=== PATIENT | male | born 1960 | race Caucasian/White ===

== ENCOUNTER 2019-07-19 20:40 | Inpatient (IN) | payer MEDICAID, OTHER ==
[~2019-07-19] VITALS: Ht 172.7 cm; Wt 75.7 kg
[~2019-07-19 20:40] MED LIST: DIVA500T52 PO; FLUO-191 PO; OLAN20TA5 PO; OLAN5TAB40 PO; PANT40TA25 PO
[2019-07-19 21:19] LABS: GLUCOSE,POINT OF CARE 76 MG/DL (70-110)
[2019-07-19 21:39] LABS: AMPHET/METH SCREEN,URINE NEGATIVE (NEGATIVE); BARBITURATE SCREEN, URINE NEGATIVE (NEGATIVE); BENZODIAZEPINES SCREEN,URINE NEGATIVE (NEGATIVE); CANNABINOID SCREEN,URINE NEGATIVE (NEGATIVE); COCAINE SCREEN,URINE NEGATIVE (NEGATIVE); METHADONE SCREEN, URINE NEGATIVE (NEGATIVE); OPIATE SCREEN,URINE NEGATIVE (NEGATIVE); PHENCYCLIDINE SCREEN,URINE NEGATIVE (NEGATIVE)
[2019-07-19 21:55] LABS: BASOPHILS % (AUTO) 0.5 % (0.0-2.0); EOSINOPHILS % (AUTO) 3.3 % (1.0-6.0); HEMATOCRIT 43.4 % (41-53); HEMOGLOBIN 14.3 g/dL (13.5-17.5); LYMPHOCYTES # (AUTO) 4.7 K/uL (1.0-4.8); LYMPHOCYTES % (AUTO) 47.6 % (22.0-44.0); MEAN CORPUSCULAR HEMOGLOBIN 30.9 pg (26.0-34.0); MEAN CORPUSCULAR HGB CONC 33.1 G/dL (31.0-37.0); MEAN CORPUSCULAR VOLUME 94 fL (80-100); MONOCYTES # (AUTO) 0.7 K/uL (0.1-1.0); NEUTROPHILS # (AUTO) 4.1 K/uL (1.8-7.7); NEUTROPHILS % (AUTO) 41.6 % (40.0-70.0); PLATELET COUNT (AUTO) 189 K/uL (150-450); RED BLOOD CELL COUNT(AUTO) 4.64 MIL/uL (4.50-5.90); RED CELL DISTRIBUTION WIDTH 19.7 % (11.5-14.5)
[2019-07-19 22:03] LABS: ANION GAP 7 mmol/L (8-16); CALCIUM, TOTAL 8.5 mg/dL (8.8-10.5); CARBON DIOXIDE 26 mmol/L (22-29); CHLORIDE 98 mmol/L (98-107); CREATININE 0.71 mg/dL (0.60-1.30); GLOMERULAR FILTR. RATE CALC > 60 mL/min (>60); GLUCOSE,RANDOM 97 mg/dL (70-110); POTASSIUM 3.3 mmol/L (3.5-5.1); SODIUM SERUM 131 mmol/L (136-145); UREA NITROGEN, BLOOD 5 mg/dL (7-18)
[2019-07-19 22:09] LABS: ALANINE AMINOTRANSFERASE 22 U/L (12-78); ALBUMIN 3.3 g/dL (3.4-5.0); ALKALINE PHOSPHATASE 62 U/L (46-116); ASPARTATE AMINOTRANSFERASE 15 U/L (15-37); BILIRUBIN,TOTAL 0.1 mg/dL (0.1-1.0); VALPROIC ACID 46 mcg/mL (50-100)
[2019-07-19] MEDS ORDERED: ZOLPIDEM TARTRATE 10 MG TABLET PO PRN (22:15)
[2019-07-19] MEDS ORDERED: LORazepam 2 MG TABLET PO PRN (22:15)
[2019-07-19] MEDS ORDERED: HALOPERIDOL 5 MG TABLET PO PRN (22:15)
[2019-07-20] MEDS ORDERED: PNEUMOCOCCAL VACCINE POLYVALENT 0.5 ML VIAL [PPSV23] IM ONE (02:00)
[2019-07-20 02:05] VITALS: BP 151/94
[2019-07-20] MEDS: PANTOPRAZOLE SODIUM 40 MG DR TABLET PO SCH (09:34)
[2019-07-20] MEDS: AmLODIPine BESYLATE 5 MG TABLET PO SCH (09:35)
[2019-07-20] MEDS: OLANZapine 7.5 MG TABLET PO SCH ×2 (09:35→16:35)
[2019-07-20] MEDS: FLUoxetine HCL 20 MG CAPSULE PO SCH (09:35)
[2019-07-20 10:55] VITALS: BP 143/106
[2019-07-20] MEDS ORDERED: POTASSIUM CHLORIDE 20 MEQ ER TABLET PO ONE (11:30)
[2019-07-20] MEDS ORDERED: LORazepam 1 MG TABLET PO PRN (12:35)
[2019-07-20] MEDS ORDERED: IBUPROFEN 400 MG TABLET PO PRN (14:00)
[2019-07-20] MEDS ORDERED: ONDANSETRON HCL 4 MG TABLET PO PRN (14:00)
[2019-07-20] MEDS ORDERED: CloNIDine HCL 0.1 MG TABLET PO PRN (14:00)
[2019-07-20] MEDS ORDERED: GuaiFENesin/D-METHORPHAN [SUGAR-FREE] 200-20MG/10 ML SYRUP UDCUP PO PRN (14:00)
[2019-07-20] MEDS ORDERED: NICOTINE 14 MG/24 HOUR PATCH TD PRN (14:00)
[2019-07-20] MEDS ORDERED: MAGNESIUM HYDROXIDE SUSPENSION 30 ML UDCUP PO PRN (14:00)
[2019-07-20] MEDS ORDERED: LOPERAMIDE HCL 2 MG CAPSULE PO PRN (14:00)
[2019-07-20] MEDS ORDERED: ACETAMINOPHEN 325 MG TABLET PO PRN (14:00)
[2019-07-20] MEDS ORDERED: ALBUTEROL SULFATE HFA 90 MCG/PUFF 8 GM INHALER IH PRN (14:00)
[2019-07-20] MEDS ORDERED: DOCUSATE SODIUM 100 MG CAPSULE PO PRN (14:00)
[2019-07-20] MEDS ORDERED: PETROLATUM,WHITE 28 GM JELLY TP PRN (14:00)
[2019-07-20] MEDS ORDERED: MAG HYDROX/AL HYDROX/SIMETH ES 30 ML SUSPENSION UDCUP PO PRN (14:00)
[2019-07-20] MEDS ORDERED: OLAN20TA5 PO (14:06)
[2019-07-20 16:00] VITALS: BP 146/94
[2019-07-20] MEDS: DIVALPROEX SODIUM 500 MG ER TABLET PO SCH (20:24)
[2019-07-21 07:48] LABS: ALANINE AMINOTRANSFERASE 22 U/L (12-78); ALBUMIN 3.4 g/dL (3.4-5.0); ALKALINE PHOSPHATASE 66 U/L (46-116); ANION GAP 9 mmol/L (8-16); ASPARTATE AMINOTRANSFERASE 15 U/L (15-37); BILIRUBIN,TOTAL 0.2 mg/dL (0.1-1.0); CALCIUM, TOTAL 9.4 mg/dL (8.8-10.5); CARBON DIOXIDE 27 mmol/L (22-29); CHLORIDE 103 mmol/L (98-107); CREATININE 0.64 mg/dL (0.60-1.30); GLOMERULAR FILTR. RATE CALC > 60 mL/min (>60); GLUCOSE,RANDOM 110 mg/dL (70-110); POTASSIUM 4.5 mmol/L (3.5-5.1); SODIUM SERUM 139 mmol/L (136-145); TOTAL PROTEIN, SERUM 7.1 g/dL (6.4-8.2); UREA NITROGEN, BLOOD 6 mg/dL (7-18)
[2019-07-21 08:00] VITALS: BP 153/97
[2019-07-21] MEDS: FLUoxetine HCL 20 MG CAPSULE PO SCH (08:53)
[2019-07-21] MEDS: OLANZapine 7.5 MG TABLET PO SCH ×2 (08:53→16:16)
[2019-07-21] MEDS: AmLODIPine BESYLATE 5 MG TABLET PO SCH (08:53)
[2019-07-21] MEDS: PANTOPRAZOLE SODIUM 40 MG DR TABLET PO SCH (08:53)
[2019-07-21 17:04] VITALS: BP 153/91
[2019-07-21] MEDS: DIVALPROEX SODIUM 500 MG ER TABLET PO SCH (20:32)
[2019-07-22 03:25] VITALS: BP 121/88
[2019-07-22 08:36] VITALS: BP 126/91
[2019-07-22] MEDS: OLANZapine 7.5 MG TABLET PO SCH ×2 (09:34→16:09)
[2019-07-22] MEDS: AmLODIPine BESYLATE 5 MG TABLET PO SCH (09:34)
[2019-07-22] MEDS: PANTOPRAZOLE SODIUM 40 MG DR TABLET PO SCH (09:34)
[2019-07-22] MEDS: FLUoxetine HCL 20 MG CAPSULE PO SCH (09:34)
[2019-07-22 17:04] VITALS: BP 122/85
[2019-07-22] MEDS: DIVALPROEX SODIUM 500 MG ER TABLET PO SCH (20:14)
[2019-07-23 05:11] VITALS: BP 123/93
[2019-07-23] MEDS: FLUoxetine HCL 20 MG CAPSULE PO SCH (08:14)
[2019-07-23] MEDS: OLANZapine 7.5 MG TABLET PO SCH ×2 (08:14→17:27)
[2019-07-23] MEDS: PANTOPRAZOLE SODIUM 40 MG DR TABLET PO SCH (08:14)
[2019-07-23] MEDS: AmLODIPine BESYLATE 5 MG TABLET PO SCH (08:14)
[2019-07-23 09:41] VITALS: BP 128/98
[2019-07-23 17:07] VITALS: BP 137/90
[2019-07-23] MEDS: DIVALPROEX SODIUM 500 MG ER TABLET PO SCH (20:36)
[2019-07-24 08:32] VITALS: BP 140/98
[2019-07-24] MEDS: AmLODIPine BESYLATE 5 MG TABLET PO SCH (08:53)
[2019-07-24] MEDS: FLUoxetine HCL 20 MG CAPSULE PO SCH (08:53)
[2019-07-24] MEDS: OLANZapine 7.5 MG TABLET PO SCH ×2 (08:53→16:05)
[2019-07-24] MEDS: PANTOPRAZOLE SODIUM 40 MG DR TABLET PO SCH (08:54)
[2019-07-24] MEDS ORDERED: AMLO5TAB9 PO (15:15)
== END 2019-07-24 17:00 | disposition home or self-care (01) | DRG 885 ==
LOC: EMS 20:41 → 3EI 22:34
PROVIDERS: ADMIT Psychiatry & Neurology Psychiatry; ATTEND Psychiatry & Neurology Child & Adolescent Psychiatry
DX: F25.9 Schizoaffective disorder, unspecified (principal); E87.1 Hypo-osmolality and hyponatremia; R45.851 Suicidal ideations; E87.6 Hypokalemia; F17.200 Nicotine dependence, unspecified, uncomplicated; F31.9 Bipolar disorder, unspecified; I10 Essential (primary) hypertension; K21.9 Gastro-esophageal reflux disease without esophagitis; M19.90 Unspecified osteoarthritis, unspecified site; F41.9 Anxiety disorder, unspecified; E78.00 Pure hypercholesterolemia, unspecified; Z91.5 Personal history of self-harm; Z88.8 Allergy status to other drugs, medicaments and biological substances; Z79.899 Other long term (current) drug therapy
CPT/HCPCS: 90732; G0480

== ENCOUNTER 2020-04-28 10:27 | Emergency (ER) | payer MEDICAID, OTHER ==
[~2020-04-28] VITALS: Ht 170.2 cm; Wt 70.0 kg
[~2020-04-28 10:27] MED LIST changes: +AMLO-257 PO; +DIVA-80 PO; -DIVA500T52 PO; -OLAN20TA5 PO; +PANT-31 PO; -PANT40TA25 PO
[2020-04-28 11:08] LABS: COVID AG,FIA SOURCE NASOPHARYNGEAL
[2020-04-28 11:40] LABS: AMPHET/METH SCREEN,URINE NEGATIVE (NEGATIVE); BARBITURATE SCREEN, URINE NEGATIVE (NEGATIVE); BENZODIAZEPINES SCREEN,URINE NEGATIVE (NEGATIVE); CANNABINOID SCREEN,URINE NEGATIVE (NEGATIVE); COCAINE SCREEN,URINE NEGATIVE (NEGATIVE); METHADONE SCREEN, URINE NEGATIVE (NEGATIVE); OPIATE SCREEN,URINE NEGATIVE (NEGATIVE)
[2020-04-28 11:42] LABS: PHENCYCLIDINE SCREEN,URINE NEGATIVE (NEGATIVE)
[2020-04-28 12:21] VITALS: BP 130/89
== END 2020-04-28 12:52 | disposition home or self-care (01) ==
LOC: EMS 10:29
DX: F20.9 Schizophrenia, unspecified (principal); R45.851 Suicidal ideations; F10.239 Alcohol dependence with withdrawal, unspecified; F41.9 Anxiety disorder, unspecified; K21.9 Gastro-esophageal reflux disease without esophagitis; I10 Essential (primary) hypertension; F17.210 Nicotine dependence, cigarettes, uncomplicated; Z79.899 Other long term (current) drug therapy; Z88.8 Allergy status to other drugs, medicaments and biological substances; Z20.822 Contact with and (suspected) exposure to COVID-19
CPT/HCPCS: 87426

== ENCOUNTER 2021-04-28 11:04 | Emergency (ER) | payer OTHER ==
[~2021-04-28] VITALS: Ht 175.3 cm; Wt 86.4 kg
[~2021-04-28 11:04] MED LIST changes: -OLAN5TAB40 PO; +OLAN5TAB94 PO
[2021-04-28 13:08] VITALS: BP 137/83
== END 2021-04-28 13:11 | disposition home or self-care (01) ==
LOC: EMS 11:09
DX: F32.9 Major depressive disorder, single episode, unspecified (principal); F41.9 Anxiety disorder, unspecified; I10 Essential (primary) hypertension; K21.9 Gastro-esophageal reflux disease without esophagitis; F17.210 Nicotine dependence, cigarettes, uncomplicated; Z88.8 Allergy status to other drugs, medicaments and biological substances; Z79.899 Other long term (current) drug therapy
CPT/HCPCS: 99284; Z7502

== ENCOUNTER 2021-08-18 15:51 | Emergency (ER) | payer OTHER ==
[~2021-08-18] VITALS: Ht 172.7 cm; Wt 89.5 kg
[~2021-08-18 15:51] MED LIST changes: +FLUO-177 PO; -FLUO-191 PO
[2021-08-18] MEDS ORDERED: ALBU8HFA IH (16:06)
[2021-08-18] MEDS ORDERED: ACET125T2 PO (16:06)
[2021-08-18] MEDS ORDERED: ADJU0.5V IM (16:06)
[2021-08-18] MEDS ORDERED: FAMO20 PO (16:06)
[2021-08-18] MEDS ORDERED: PALI6TAB15 PO (16:06)
[2021-08-18] MEDS ORDERED: FERR325T27 PO (16:06)
[2021-08-18] MEDS ORDERED: METF-1211 PO (16:06)
[2021-08-18] MEDS ORDERED: BECL10.6 IH (16:06)
[2021-08-18] MEDS ORDERED: ROSU20TA73 PO (16:06)
[2021-08-18] MEDS ORDERED: XALA2.5OS OU (16:06)
[2021-08-18] MEDS ORDERED: ASPI-1450 PO (16:06)
[2021-08-18] MEDS ORDERED: ASCO500C6 PO (16:06)
[2021-08-18] MEDS ORDERED: OMEP20 PO (16:06)
[2021-08-18] MEDS ORDERED: BENA10TA77 PO (16:06)
[2021-08-18 16:31] LABS: GLUCOMETER DEV NAME(LOC) ERT.5; GLUCOSE,POINT OF CARE 183 MG/DL (70-110)
[2021-08-18] MEDS ORDERED: NAPR-1025 PO (16:33)
[2021-08-18] MEDS ORDERED: METH-659 PO (16:33)
[2021-08-18] MEDS ORDERED: METHOCARBAMOL 500 MG TABLET PO ONE (16:45)
[2021-08-18] MEDS ORDERED: KETOROLAC TROMETHAMINE 10 MG TABLET PO ONE (16:45)
[2021-08-18 16:54] VITALS: BP 125/91
== END 2021-08-18 16:59 | disposition home or self-care (01) ==
LOC: EMS 15:54
DX: S76.912A Strain of unspecified muscles, fascia and tendons at thigh level, left thigh, initial encounter (principal); F41.9 Anxiety disorder, unspecified; F31.9 Bipolar disorder, unspecified; E11.9 Type 2 diabetes mellitus without complications; K21.9 Gastro-esophageal reflux disease without esophagitis; I10 Essential (primary) hypertension; F17.210 Nicotine dependence, cigarettes, uncomplicated; Z79.84 Long term (current) use of oral hypoglycemic drugs; Z79.82 Long term (current) use of aspirin; Z88.8 Allergy status to other drugs, medicaments and biological substances; X58.XXXA Exposure to other specified factors, initial encounter; Y93.89 Activity, other specified; Y92.89 Other specified places as the place of occurrence of the external cause; Y99.8 Other external cause status
CPT/HCPCS: 82962; 99283

== ENCOUNTER 2022-08-07 22:56 | Emergency (ER) | payer OTHER ==
[~2022-08-07 22:56] MED LIST changes: +ACET125T2 PO; +ADJU0.5V IM; +ALBU18HF12 IH; +ASCO500C6 PO; +ASPI-1450 PO; +BECL10.6 IH; +BENA10TA77 PO; -DIVA-80 PO; +DIVA500T53 PO; +FAMO20 PO; +FERR325T27 PO; +METF-1211 PO; +METH-659 PO; +NAPR-1025 PO; +OMEP20 PO; +PALI6TAB15 PO; +ROSU20TA73 PO; +XALA2.5OS OU
== END 2022-08-08 00:28 | disposition left against medical advice (07) ==
LOC: EMS 22:58
DX: Z53.21 Procedure and treatment not carried out due to patient leaving prior to being seen by health care provider (principal)

== ENCOUNTER 2023-05-27 17:21 | Emergency (ER) | payer OTHER ==
[~2023-05-27 17:21] MED LIST changes: +BENA-16 PO; -BENA10TA77 PO
[2023-05-27 18:19] VITALS: TEMP 97.8
[2023-05-27 18:21] LABS: ANION GAP 14 mmol/L (8-16); CALCIUM, TOTAL 9.6 mg/dL (8.8-10.5); CARBON DIOXIDE 21 mmol/L (22-29); CHLORIDE 91 mmol/L (98-107); CREATININE 0.65 mg/dL (0.60-1.30); GLOMERULAR FILTR. RATE CALC > 60 mL/min (>60); GLUCOSE,RANDOM 98 mg/dL (70-110); POTASSIUM 3.7 mmol/L (3.5-5.1); SODIUM SERUM 126 mmol/L (136-145); UREA NITROGEN, BLOOD 6 mg/dL (7-18)
[2023-05-27 18:22] LABS: BASOPHILS % (AUTO) 0.3 % (0.0-2.0); EOSINOPHILS % (AUTO) 0.4 % (1.0-6.0); HEMATOCRIT 41.6 % (41-53); HEMOGLOBIN 13.4 g/dL (13.5-17.5); LYMPHOCYTES # (AUTO) 2.4 K/uL (1.0-4.8); LYMPHOCYTES % (AUTO) 34.7 % (22.0-44.0); MEAN CORPUSCULAR HEMOGLOBIN 28.1 pg (26.0-34.0); MEAN CORPUSCULAR HGB CONC 32.2 G/dL (31.0-37.0); MEAN CORPUSCULAR VOLUME 87 fL (80-100); MONOCYTES # (AUTO) 0.6 K/uL (0.1-1.0); MONOCYTES % (AUTO) 9.4 % (2.0-9.0); NEUTROPHILS # (AUTO) 3.8 K/uL (1.8-7.7); NEUTROPHILS % (AUTO) 55.2 % (40.0-70.0); PLATELET COUNT (AUTO) 182 K/uL (150-450); RED BLOOD CELL COUNT(AUTO) 4.76 MIL/uL (4.50-5.90); RED CELL DISTRIBUTION WIDTH 16.1 % (11.5-14.5); WHITE BLOOD COUNT (AUTO) 6.8 K/uL (4.5-11.0)
[2023-05-27 18:27] LABS: ALANINE AMINOTRANSFERASE 25 U/L (12-78); ALBUMIN 3.9 g/dL (3.4-5.0); ALKALINE PHOSPHATASE 77 U/L (46-116); ASPARTATE AMINOTRANSFERASE 31 U/L (15-37); BILIRUBIN,TOTAL 0.5 mg/dL (0.1-1.0)
[2023-05-27] MEDS ORDERED: METH-811 PO (18:30)
[2023-05-27] MEDS ORDERED: GABA-1181 PO (18:30)
[2023-05-27 18:42] LABS: COVID AG,FIA SOURCE NASAL SWAB
[2023-05-27 18:49] LABS: ALCOHOL, BLOOD (SERUM) < 3 mg/dL (0-10)
[2023-05-27 18:52] LABS: ALCOHOL, URINE DRUG SCREEN NEGATIVE (NEGATIVE); AMPHET/METH SCREEN,URINE NEGATIVE (NEGATIVE); BARBITURATE SCREEN, URINE NEGATIVE (NEGATIVE); BENZODIAZEPINES SCREEN,URINE NEGATIVE (NEGATIVE); CANNABINOID SCREEN,URINE NEGATIVE (NEGATIVE); COCAINE SCREEN,URINE NEGATIVE (NEGATIVE); METHADONE SCREEN, URINE NEGATIVE (NEGATIVE); OPIATE SCREEN,URINE NEGATIVE (NEGATIVE); PHENCYCLIDINE SCREEN,URINE NEGATIVE (NEGATIVE)
[2023-05-27 19:04] LABS: SARS-COV2 (COVID) ANTIGEN,FIA Negative (Negative)
[2023-05-27 22:37] VITALS: BP 152/92; PULSE 90; RESP 18
== END 2023-05-27 22:40 | disposition home or self-care (01) ==
LOC: EMS 17:21
DX: R45.851 Suicidal ideations (principal); F10.20 Alcohol dependence, uncomplicated; F41.9 Anxiety disorder, unspecified; F31.9 Bipolar disorder, unspecified; E11.9 Type 2 diabetes mellitus without complications; I10 Essential (primary) hypertension; F17.210 Nicotine dependence, cigarettes, uncomplicated; Z88.8 Allergy status to other drugs, medicaments and biological substances; Z20.822 Contact with and (suspected) exposure to COVID-19; Y90.9 Presence of alcohol in blood, level not specified
CPT/HCPCS: 99284; 87426; 80053; 85025; 36415; 80307; G0480

== ENCOUNTER 2023-05-29 00:05 | Emergency (ER) | payer OTHER ==
[~2023-05-29] VITALS: Ht 175.3 cm; Wt 81.4 kg
[~2023-05-29 00:05] MED LIST changes: +GABA-1181 PO; -METH-659 PO; +METH-811 PO
[2023-05-29 00:12] VITALS: BP 152/100; PULSE 110; RESP 18; TEMP 98.3
[2023-05-29 02:11] LABS: BASOPHILS % (AUTO) 0.3 % (0.0-2.0); EOSINOPHILS % (AUTO) 0.5 % (1.0-6.0); HEMATOCRIT 41.8 % (41-53); HEMOGLOBIN 13.7 g/dL (13.5-17.5); LYMPHOCYTES # (AUTO) 2.6 K/uL (1.0-4.8); LYMPHOCYTES % (AUTO) 35.6 % (22.0-44.0); MEAN CORPUSCULAR HEMOGLOBIN 28.6 pg (26.0-34.0); MEAN CORPUSCULAR HGB CONC 32.8 G/dL (31.0-37.0); MEAN CORPUSCULAR VOLUME 87 fL (80-100); MONOCYTES # (AUTO) 0.9 K/uL (0.1-1.0); MONOCYTES % (AUTO) 11.9 % (2.0-9.0); NEUTROPHILS # (AUTO) 3.8 K/uL (1.8-7.7); NEUTROPHILS % (AUTO) 51.7 % (40.0-70.0); PLATELET COUNT (AUTO) 201 K/uL (150-450); RED CELL DISTRIBUTION WIDTH 16.1 % (11.5-14.5); WHITE BLOOD COUNT (AUTO) 7.3 K/uL (4.5-11.0)
[2023-05-29 02:21] LABS: ANION GAP 11 mmol/L (8-16); CALCIUM, TOTAL 9.9 mg/dL (8.8-10.5); CARBON DIOXIDE 25 mmol/L (22-29); CHLORIDE 94 mmol/L (98-107); CREATININE 0.65 mg/dL (0.60-1.30); GLOMERULAR FILTR. RATE CALC > 60 mL/min (>60); GLUCOSE,RANDOM 140 mg/dL (70-110); POTASSIUM 3.6 mmol/L (3.5-5.1); SODIUM SERUM 130 mmol/L (136-145); UREA NITROGEN, BLOOD 5 mg/dL (7-18)
[2023-05-29 02:29] LABS: ALANINE AMINOTRANSFERASE 28 U/L (12-78); ALBUMIN 3.7 g/dL (3.4-5.0); ALKALINE PHOSPHATASE 76 U/L (46-116); ASPARTATE AMINOTRANSFERASE 28 U/L (15-37); BILIRUBIN,TOTAL 0.4 mg/dL (0.1-1.0)
[2023-05-29 02:39] LABS: ALCOHOL, BLOOD (SERUM) < 3 mg/dL (0-10)
[2023-05-29] MEDS: OLANZapine 10 MG TABLET PO ONE (03:10)
== END 2023-05-29 04:04 | disposition home or self-care (01) ==
LOC: EMS 00:08
DX: F20.9 Schizophrenia, unspecified (principal); F28 Other psychotic disorder not due to a substance or known physiological condition; F10.20 Alcohol dependence, uncomplicated; F41.9 Anxiety disorder, unspecified; M19.90 Unspecified osteoarthritis, unspecified site; E11.9 Type 2 diabetes mellitus without complications; I10 Essential (primary) hypertension; F17.210 Nicotine dependence, cigarettes, uncomplicated; Z88.8 Allergy status to other drugs, medicaments and biological substances
CPT/HCPCS: 99284; 80053; 85025; 36415; G0480

== ENCOUNTER 2024-11-03 07:23 | Emergency (ER) | payer OTHER ==
[~2024-11-03] VITALS: Ht 174 cm; Wt 76.8 kg
[~2024-11-03 07:23] MED LIST changes: -ACET125T2 PO; -ADJU0.5V IM; +ASCO500C14 PO; -ASCO500C6 PO; -BENA-16 PO; +BENA10TA76 PO; -DIVA500T53 PO; -FAMO20 PO; -FLUO-177 PO; +FLUO-418 PO; +LATA2.5D7 OU; -METF-1211 PO; +METF-446 PO; -METH-811 PO; +MULT-1366 PO; -NAPR-1025 PO; +NAPR-1196 PO; +OLAN1TAB7 PO; -OMEP20 PO; +OMEP20CA12 PO; -PANT-31 PO; -ROSU20TA73 PO; +ROSU40TA88 PO; -XALA2.5OS OU; +ZIPR20CA38 PO
[2024-11-03 07:36] VITALS: TEMP 97.7
[2024-11-03 08:01] LABS: GLUCOMETER DEV NAME(LOC) ER.7; GLUCOSE,POINT OF CARE 108 MG/DL (70-110)
[2024-11-03 08:48] LABS: PLATELET COUNT (AUTO) 249 K/uL (150-450); RED BLOOD CELL COUNT(AUTO) 3.71 MIL/uL (4.50-5.90); RED CELL DISTRIBUTION WIDTH 27.1 % (11.5-14.5); WHITE BLOOD COUNT (AUTO) 6.8 K/uL (4.5-11.0)
[2024-11-03 08:49] LABS: RBC MORPHOLOGY COMMENT ABNORMAL RBC MORPH
[2024-11-03 08:58] LABS: CALCIUM, TOTAL 9.0 mg/dL (8.8-10.5); CREATININE 0.83 mg/dL (0.60-1.30); GLOMERULAR FILTR. RATE CALC > 60 mL/min (>60); GLUCOSE,RANDOM 93 mg/dL (70-110); SODIUM SERUM 139 mmol/L (136-145); UREA NITROGEN, BLOOD 6 mg/dL (7-18)
[2024-11-03 09:01] LABS: ASPARTATE AMINOTRANSFERASE 24.0 U/L (15-37); TOTAL PROTEIN, SERUM 8.5 g/dL (6.4-8.2)
[2024-11-03 09:06] LABS: TROPONIN I-HIGH SENSITIVITY 5 ng/L (<76)
[2024-11-03 11:45] VITALS: BP 135/95; PULSE 90; RESP 18; O2SAT 97
[2024-11-04] MEDS ORDERED: MIDAZOLAM HCL 2 MG/2 ML VIAL ONE (10:56)
[2024-11-04] MEDS ORDERED: FentaNYL CITRATE PF 100 MCG/2 ML VIAL ONE (10:56)
== END 2024-11-03 11:57 | disposition home or self-care (01) ==
LOC: EMS 07:30
DX: K75.0 Abscess of liver (principal); F25.9 Schizoaffective disorder, unspecified; E11.9 Type 2 diabetes mellitus without complications; E78.00 Pure hypercholesterolemia, unspecified; F17.210 Nicotine dependence, cigarettes, uncomplicated; I10 Essential (primary) hypertension; Z79.51 Long term (current) use of inhaled steroids; Z79.899 Other long term (current) drug therapy; Z79.82 Long term (current) use of aspirin; Z98.890 Other specified postprocedural states
CPT/HCPCS: 74176; 80048; 80076; 82962; 83690; 84484; 85025; 99284; J0690; J2250; J3010

== ENCOUNTER 2024-11-04 08:29 | Emergency (ER) | payer OTHER ==
[~2024-11-04] VITALS: Ht 172.7 cm; Wt 77.3 kg
[2024-11-04 08:36] VITALS: RESP 16; TEMP 97.3; O2SAT 98
[2024-11-04] MEDS ORDERED: LIDOCAINE/PF 1% 30 ML VIAL ONE ×2 (09:07→10:43)
[2024-11-04] MEDS ORDERED: IOHEXOL 300 MG/ML 50 ML VIAL ONE ×2 (09:07→10:43)
[2024-11-04] MEDS: IOHEXOL 300 MG/ML 50 ML VIAL IVP ONE ×2 (09:21→11:17)
[2024-11-04 10:53] VITALS: BP 137/87; PULSE 75
[2024-11-04] MEDS: LIDOCAINE 1% 30 ML/SOD BICARB 8.4% 4 ML SQ ONE (11:17)
[2024-11-04] MEDS: FentaNYL CITRATE PF 100 MCG/2 ML VIAL IVP ONE (11:17)
[2024-11-04] MEDS: MIDAZOLAM HCL 2 MG/2 ML VIAL IVP ONE (11:18)
[2024-11-04 11:29] VITALS: BP 128/89; PULSE 82
== END 2024-11-04 12:00 | disposition home or self-care (01) ==
LOC: EMS 08:42
DX: K75.0 Abscess of liver (principal); E11.9 Type 2 diabetes mellitus without complications; E78.00 Pure hypercholesterolemia, unspecified; F20.9 Schizophrenia, unspecified; I10 Essential (primary) hypertension; Z79.899 Other long term (current) drug therapy; Z79.82 Long term (current) use of aspirin; Z79.51 Long term (current) use of inhaled steroids; F17.210 Nicotine dependence, cigarettes, uncomplicated; Z98.890 Other specified postprocedural states; Z88.5 Allergy status to narcotic agent
CPT/HCPCS: 99285; 76000; 96374; 96375; 85610; 36415; 36245; 96376; 96372; 77002; J3490; Q9967

== ENCOUNTER 2024-11-18 07:53 | Emergency (ER) | payer OTHER ==
[~2024-11-18] VITALS: Ht 175.3 cm; Wt 89.1 kg
[2024-11-18 08:03] VITALS: TEMP 97.7
[2024-11-18 08:20] LABS: GLUCOMETER DEV NAME(LOC) ER.7; GLUCOSE,POINT OF CARE 130 MG/DL (70-110)
[2024-11-18 08:24] LABS: PLATELET COUNT (AUTO) 220 K/uL (150-450); RED BLOOD CELL COUNT(AUTO) 3.54 MIL/uL (4.50-5.90); RED CELL DISTRIBUTION WIDTH 24.9 % (11.5-14.5); WHITE BLOOD COUNT (AUTO) 5.4 K/uL (4.5-11.0)
[2024-11-18 08:38] LABS: ASPARTATE AMINOTRANSFERASE 16.0 U/L (15-37); TOTAL PROTEIN, SERUM 7.4 g/dL (6.4-8.2)
[2024-11-18 08:41] LABS: CALCIUM, TOTAL 8.4 mg/dL (8.8-10.5); CREATININE 0.80 mg/dL (0.60-1.30); GLOMERULAR FILTR. RATE CALC > 60 mL/min (>60); GLUCOSE,RANDOM 125 mg/dL (70-110); SODIUM SERUM 136 mmol/L (136-145); UREA NITROGEN, BLOOD 5 mg/dL (7-18)
[2024-11-18 08:44] LABS: RBC MORPHOLOGY COMMENT ABNORMAL RBC MORPH
[2024-11-18 09:46] VITALS: BP 114/87; PULSE 64; RESP 18; O2SAT 98
== END 2024-11-18 11:17 | disposition left against medical advice (07) ==
LOC: EMS 07:57
DX: K75.0 Abscess of liver (principal); E11.9 Type 2 diabetes mellitus without complications; E78.00 Pure hypercholesterolemia, unspecified; F20.9 Schizophrenia, unspecified; I10 Essential (primary) hypertension; F17.210 Nicotine dependence, cigarettes, uncomplicated; Z98.890 Other specified postprocedural states; Z79.82 Long term (current) use of aspirin; Z79.51 Long term (current) use of inhaled steroids; Z79.899 Other long term (current) drug therapy
CPT/HCPCS: 74176; 80048; 80076; 82962; 83690; 85025; 85610; 85730; 86850; 86900; 86901; 99241; 99284

== ENCOUNTER 2025-03-28 09:40 | Emergency (ER) | payer OTHER ==
[~2025-03-28] VITALS: Ht 172.7 cm; Wt 73.0 kg
[~2025-03-28 09:40] MED LIST changes: -NAPR-1196 PO
[2025-03-28 09:42] VITALS: BP 114/90; PULSE 86; RESP 18; TEMP 98.8; O2SAT 98
== END 2025-03-28 10:53 | disposition left against medical advice (07) ==
LOC: EMS 09:41
DX: M54.9 Dorsalgia, unspecified (principal); E11.9 Type 2 diabetes mellitus without complications; E78.00 Pure hypercholesterolemia, unspecified; F20.9 Schizophrenia, unspecified; I10 Essential (primary) hypertension; J90 Pleural effusion, not elsewhere classified; F17.210 Nicotine dependence, cigarettes, uncomplicated; Z98.890 Other specified postprocedural states; Z79.51 Long term (current) use of inhaled steroids; Z79.82 Long term (current) use of aspirin; Z79.899 Other long term (current) drug therapy; Z53.29 Procedure and treatment not carried out because of patient's decision for other reasons
CPT/HCPCS: 82962; 99283